=== PATIENT | female | born 1950 | race Caucasian/White ===

== ENCOUNTER 2021-05-23 11:20 | Outpatient (CLI) | payer MEDICARE, SELFPAY ==
--- NOTE | ~2021-05-23 | US_ITS ---
EXAMINATION: US venous doppler [facility] DATE: 05/23/2021 12:01 INDICATION: Left lower limb pain. Other specified soft tissue disorders. TECHNIQUE: Grayscale ultrasound images without and with compression and Doppler ultrasound images of the left lower extremity veins were obtained. COMPARISON: None. FINDINGS: The visualized portions of left common femoral vein, profunda (deep) femoral vein, femoral vein, popl iteal vein, peroneal veins, posterior tibial veins, and greater saphenous vein outflow are patent. Th ere is a large Mace's cyst of heterogeneous echogenicity measuring 5.1 x 5.1 x 2.5 cm. IMPRESSION: 1. No deep venous thrombosis. 2. Large Mace's cyst. Reviewed, dictated and finalized at location A.
== END 2021-05-23 11:21 | disposition home or self-care (01) ==
LOC: ANHIMG 11:30
PROVIDERS: PCP Family Medicine; Visit Provider Family Medicine
DX: M79.89 Other specified soft tissue disorders (principal); M71.22 Synovial cyst of popliteal space [Baker], left knee
CPT/HCPCS: 93971

== ENCOUNTER 2022-04-29 12:30 | Outpatient (CLI) | payer MEDICARE, SELFPAY ==
--- NOTE | 2022-04-29 | ECHO_ITS ---
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 Summary 1. Complete two-dimensional, color flow and Doppler transthoracic echocardiogram is performed. 2. Left ventricular chamber dimension is normal. 3. There is mildly increased left ventricular wall thickness. 4. Left ventricular septal wall motion is abnormal with septal motion related to bundle branch block. 5. Left ventricular systolic function is preserved, estimated at 50-55%. 6. The left ventricular diastolic function is grade I diastolic dysfunction. 7. E/e' 13 is mildly elevated. 8. Left atrial chamber dimension is mildly enlarged. 9. There is mild aortic valve sclerosis. 10. The mitral valve has mildly calcified leaflets. 11. No pulmonary hypertension, estimated pulmonary arterial systolic pressure is 28 mmHg. 12. There is trace pulmonic regurgitation. Left Ventricle Left ventricular systolic function is preserved, estimated at 50-55%. E/e' 13 is mildly elevated. Left ventricular chamber dimension is normal. There is mildly increased left ventricular wall thickness. Left ventricular septal wall motion is abnormal with septal motion related to bundle branch block. The left ventricular diastolic function is grade I diastolic dysfunction. Right Ventricle Right ventricular systolic function is normal based on normal TAPSE 1.7 cm. Right ventricular chamber dimension is not well visualized. Left Atria Left atrial chamber dimension is mildly enlarged. Right Atria Right atrial chamber dimension is normal. Aortic Valve The aortic valve is trileaflet. There is mild aortic valve sclerosis. There is no aortic valve stenosis. There is no aortic valve regurgitation. Pulmonic Valve There is trace pulmonic regurgitation. Mitral Valve The mitral valve has mildly calcified leaflets. There is no mitral valve stenosis. There is no mitral valve regurgitation. Tricuspid Valve There is no tricuspid valve regurgitation. No pulmonary hypertension, estimated pulmonary arterial systolic pressure is 28 mmHg. Pericardium/Pleural There is no pericardial effusion. Inferior Vena Cava Normal inferior vena cava with >50% collapse upon inspiration consistent with normal right atrial pressure, 5 mmHg. Aorta The aortic root size at the sinus of Valsalva is normal. Left Ventricular Outflow Tract Name Value Normal LVOT 2D LVOT Diameter 1.8 cm LVOT Doppler LVOT Peak Gradient 4 mmHg LVOT Mean Gradient 2 mmHg LVOT VTI
== END 2022-04-29 12:31 | disposition home or self-care (01) ==
LOC: ANHCARD 12:33
PROVIDERS: PCP Family Medicine; Visit Provider Internal Medicine Cardiovascular Disease
DX: I42.7 Cardiomyopathy due to drug and external agent (principal)
CPT/HCPCS: 93306

== ENCOUNTER 2024-11-09 12:29 | Emergency (ER) | payer MEDICARE, SELFPAY ==
--- NOTE | ~2024-11-09 | CT_ITS ---
EXAMINATION: CT hip RT wo con DATE: 11/09/2024 13:50 INDICATION: Right thigh pain/nerve pain. TECHNIQUE: High resolution computed tomography (CT) of the right hip was performed without intravenou s contrast. Additional sagittal and coronal reconstructions were performed. Automated exposure contro l and iterative reconstruction technique were employed. The dose-length product was 778.66 mGy-cm. COMPARISON: None FINDINGS: Bone alignment is normal. No fracture or suspected osteonecrosis. Moderate osteoarthritis at the righ t hip with subarticular cystlike changes suggesting high-grade chondral malacia at the anterior, post erior and posterior superior right acetabulum. No right hip joint effusion. There is fatty atrophy al tonia the right rectus femoris muscle belly suggesting sequela of prior trauma or denervation. Remainin g musculature of the sized right thigh and hemipelvis are normal. Bladder, visualized bowels and visu alized portion of the uterus are unremarkable. No pathologically enlarged right pelvic and inguinal l ymphadenopathy. No evident masses, abnormal fluid collections or other abnormal impinging lesions peter ng the course of the right lumbosacral plexus, sciatic nerve or femoral nerve. IMPRESSION: 1. Moderate right hip osteoarthritis. 2. Fatty atrophy along the right rectus femoris muscle belly which could be sequela of prior trauma o r chronic denervation change. Reviewed, dictated and finalized at location B. IMPRESSION: 1. Moderate right hip osteoarthritis. 2. Fatty atrophy along the right rectus femoris muscle belly which could be seq uela of prior trauma or chronic denervation change.
--- NOTE | ~2024-11-09 | US_ITS ---
RIGHT LOWER EXTREMITY VENOUS ULTRASOUND Ordering provider: Rich Majano MD History: . right thigh pain, fullness . Comparison: None. FINDINGS: --COMMON FEMORAL: Patent and free of thrombus. Normal compressibility, phasic flow and augmentation. --PROXIMAL SUPERFICIAL FEMORAL: Patent and free of thrombus. Normal compressibility, phasic flow and augmentation. --DISTAL SUPERFICIAL FEMORAL: Patent and free of thrombus. Normal compressibility, phasic flow and au gmentation. --POPLITEAL: Patent and free of thrombus. Normal compressibility, phasic flow and augmentation. --POSTERIOR TIBIAL: Patent and free of thrombus. Normal compressibility, phasic flow and augmentation . IMPRESSION: Negative right lower extremity venous US. No deep vein thrombosis. Reviewed, dictated and finalized at location A.
[2024-11-09 12:34] VITALS: BP 151/66; PULSE 89; RESP 18; TEMP 36.8; O2SAT 97
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
--- OUTSIDE RECORDS SUMMARY | 2024-11-09 14:23 | XMS_ITS | Clinical Summary ---
Author Organization [facility] Address [address] [place] [address] Care Team Providers Care Municipal Maintenance Worker Name Role Phone Arabella Yoo MD Primary Care Provider Allergies Active Allergy Reactions Criticality Noted Date Comments Hydrocodone Vomiting Low Oxycodone Medications levothyroxine (SYNTHROID, LEVOTHROID) 50 mcg tablet Take 1,000 tablets (50,000 mcg total) by mouth daily 8 Active cholecalciferol (VITAMIN D-3) 5,000 unit capsule Take 1 capsule (5,000 Units total) by mouth daily Active cyclobenzaprine (FLEXERIL) 10 mg tablet as needed. 8 Active vit C,I-Yn-uxfhd-iron tein-zeaxan 60 mg-13.5 mg- 15 mg-2 mg-6 mg capsule TAKE 1 CAPSULE DAILY. Active CALCIUM CITRATE ORAL 1,260 mg daily. Acti ve BIOTIN ORAL Take 1 capsule by mouth daily Active atorvastatin (LIPITOR) 10 mg tablet Take 1 tablet (10 mg total) by mouth daily 90 tablet 3 3 Active furosemide (LASIX) 20 mg tablet Take 1 tablet every Mondays, Wednesdays & Fridays 36 tablet 3 4 Active lisinopriL (PRINIVIL,ZESTR IL) 40 mg tablet Take 1 tablet (40 mg total) by mouth daily 90 tablet 3 5 Active metoprolol XL (TOPROL-XL) 50 mg extended release tablet Take 1.5 tablets (75 mg total) by mouth daily 135 tablet 3 5 Active Active Problems Problem Noted Date Diagnosed Date History of breast cancer 02/04/2019 Hypertension 04/29/2017 Left bundle branch block (LBBB) 09/15/2012 Cardiomyopathy 09/15/2012 Encounters Date Type Department Care Team Description 09/21/2024 2:30 PM DISPERSION MIXER Office Visit [facility] Card[facility] [address] [place] [address] iKng Hooks MD Left bundle branch block (LBBB) (Primary Dx) from Last 3 Months Surgical History Surgery Date Site/Laterality Comments MASTECTOMY Left FOOT SURGERY Medical History Medical History Date Comments Disorder of thyroid Thyroid dise ase Hx Other Medical Blood clots in leg; Comments: RAJNI 01/11/2014 - Hx Other Medical abnormal heartb eat; Comments: RAJNI 01/11/2014 - Hx Other Medical Mastectomy; Com ments: RAJNI 01/11/2014 - Hx Other Medical foot repair; Co mments: RAJNI 01/11/2014 - Cancer (HCC) Deep vein thrombosis (HCC) LBBB (left bundle branch block) Family History Medical History Relation Name Comments Heart attack Father Family history of myocardial infarction - (Added by TW Conv) Brain cancer Maternal Grandfather Family history of malignant neoplasm of brain - Relation: Grandfather (Added by TW Conv) Lung cancer Maternal Grandfather Family history of lung cancer - Relation: Grandfather (Added by TW Conv) Brain cancer Mother Family history of malignant neoplasm of brain - (Added by TW Conv) Heart attack Mother Family history of myocardial infarction - (Added by TW Conv) Lung cancer Mother Family history of lung cancer - (Added by TW Conv) Lymphoma Mother Family history of lymphoma - (Added by TW Conv) Cancer Other 1 Family history of Cancer; Heart disease Other 2 Family history of Heart problems; Arthritis Other 3 Family history of Arthritis; Diabetes Other 4 Family history of Diabetes; Other Other 5 Family history of Hepertension; Kidney disease Other 6 Family histor y of Kidney problems; Lung cancer Other 7 Family history of lung cancer - (Added by TW Conv) Lung cancer Other 8 Family history of lung cancer - Relation: Uncle (Added by TW Conv) Lymphoma Other 9 Family history of lymphoma - (Added by TW Conv) Brain cancer Other 10 Family history of malignant neoplasm of brain - (Added by TW Conv) Relation Name Status Comments Father Maternal Grandfather Mother Other 1 Other 2 Other 3 Other 4 Other 5 Other 6 Other 7 Other 8 Other 9 Other 10 Social History Tobacco Use Types Packs/Day Years Used Date Smoking Tobacco: Former Smokeless Tobacco: Never Tobacco Cessation:Counseling Given: Not Answered Comments Unknown Sex and Gender Information Value Date Recorded Sex Assigned at Not on file Legal Sex Female 3:17 AM DISPERSION MIXER Gender Identity Female 01/29/2021 9:23 AM CDT Sexual Orientation Straight 01/29/2021 9: 23 AM CDT Obstetrics History Last Filed Vital Signs Vital Sign Reading Time Taken Comments Blood Pressure 122/64 09/21/2024 2:33 PM DISPERSION MIXER Pulse 81 09/21/2024 2:33 PM DISPERSION MIXER Temperature 36.5 C (97.7 F) 10/28/2018 12:55 PM CDT Respiratory Rate 18 08/08/2018 3:45 PM DISPERSION MIXER Oxygen Saturation 98% 09/21/2024 2:33 PM DISPERSION MIXER Inhaled Oxygen Concentration - - Weight 105.1 kg (231 lb 9.6 oz) 09/21/2024 2:33 PM DISPERSION MIXER Height 165.1 cm (5' 5 ) 09/21/2024 2:33 PM DISPERSION MIXER Body Mass Index 38.54 09/21/2024 2:33 PM DISPERSION MIXER Plan of Treatment Health Maintenance Due Date Last Done Comments Depression Screening 1950 Fall Risk Assessment 1950 Hepatitis C Screening 1950 Hepatitis B Screening 1966 Zoster Vaccine (1 of 2) 1998 Well Visit 65+ 2013 Osteoporosis Screening-Bone Density Scan 11/04/2018 11/04/2016, 10/26/2014, 10/06/2012 DTaP/Tdap/Td Vaccine (2 - Td or Tdap) 08/18/2022 08/18/2012 Influenza Vaccine (#1) 2024 9, 05/30/2018, 06/02/2017, Additional history exists Pneumococcal vaccine 65+ Completed 019, 08/18/2017, 06/02/2017 Breast Cancer Screening-Mammogram Discontinued 06/28/2024, 06/23/2023, 06/12/2022, Additional history exists Procedures Procedure Name Priority Date/Time Associated Diagnosis Comments ECG 12-LEAD Routine 09/21/2024 12:15 PM DISPERSION MIXER Left bundle branch block (LBBB) SCREENING MAMMOGRAM RIGHT W RUBENS UNILATERAL ONLY Schedule Routine, Read Routine (OP Routine) 06/28/2024 9:54 AM DISPERSION MIXER Encounter for screening mammogram for malignant neoplasm of breast DEXA AXIAL SKELETON BONE DENSITY 1 OR MORE SITES Routine 11/04/2016 3:43 PM CDT from Last 3 Months or Most Recently Relevant to Health Maintenance Results * ECG 12 lead (09/21/2024 12:15 PM DISPERSION MIXER) us King Hooks MD ECG ORDERABLES Final Re sult * Screening Mammogram Right W Rubens Unilateral Only (06/28/2024 9:54 AM DISPERSION MIXER) Anatomical Region Laterality Modality Breast Right Mammography Narrative 06/29/2024 1:26 PM DISPERSION MIXER Mammogram Technique: Right Breast Digital Breast Tomosynthesis, Unilateral C-view 2D Screening mammogram. Views obtained: right craniocaudal and right mediolateral oblique. Computer Aided Detection was performed. Mammogram Findings: The present examination has been compared to prior imaging studies performed at [facility] on 06/08/2021, 06/12/2022 and 06/23/2023. The breast is heterogeneously dense, which may obscure small masses. There is no suspicious abnormality in the right breast. Patient status post contralateral mastectomy for personal history of breast cancer. Impression: There is no mammographic evidence of malignancy. As this patient is over 75 years of age, further mammographic screening can be obtained as clinically indicated. OVERALL FINAL ASSESSMENT: BI-RADS CATEGORY 1: Negative. Procedure Note Susi Daniel MD - 06/29/2024 Mammogram Technique: Right Breast Digital Breast Tomosynthesis, Unilateral C-view 2DScreening mammogram. Views obtained: right craniocaudal and right mediolateral oblique. Computer Aided Detection was performed. Mammogram Findings: The present examination has been compared to prior imaging studies performed at [facility] on 06/08/2021, 06/12/2022 and 06/23/2023. The breast is heterogeneously dense, which may obscure small masses. There is no suspicious abnormality in the right breast. Patient status post contralateral mastectomy for personal history ofbreast cancer. Impression: There is no mammographic evidence of malignancy. As this patient is over 75 years of age, further mammographic screeningcan be obtained as clinically indicated. OVERALL FINAL ASSESSMENT: BI-RADS CATEGORY 1: Negative. Beti Healy ANCILLARY SERVICES MANAGER IMG MAMMO PROCEDURES Fin al Result * Dexa Axial Skeleton Bone Density 1 or 2 Site (11/04/2016 3:43 PM CDT) Anatomical Region Laterality Modality Body N/A Radiographic Juani ging 11/04/2016 3:43 PM CDT Narrative 11/04/2016 3:43 PM CDT vm DEXA Bone Density Axial Acc#: [id number] DATE OF EXAM: Nov 04 2016 CLINICAL HISTORY: Estrogen receptor positive breast cancer. Menopause age 43. RESULT: DXA LEFT HIP RESULTS SUMMARY: BMD (g/cm'b2) T-score Z-score Neck 0.787 -0.6 1.1 Total 1.054 0.9 2.3 DXA L-SPINE RESULTS SUMMARY: BMD (g/cm'b2) T-score Z-score L1 0.919 -0.6 1.1 L2 1.025 0.0 1.9 L3 1.131 0.4 2.5 L4 1.035 -0.2 1.9 Total 1.028 -0.2 1.8 IMPRESSION: 1. LEFT HIP T-SCORE -0.6 NECK; +0.9 TOTAL; NORMAL. T-SCORE HAS INCREASED 0.2 SINCE LAST EXAM ON OCTOBER 30, BUT DECREASED 0.2 SINCE BASELINE ON SEPTEMBER 30. BONE MINERAL DENSITY HAS INCREASED 2.3% SINCE LAST EXAM, BUT DECREASED 1.5% SINCE BASELINE. 2. LUMBAR SPINE T-SCORE -0.2; NORMAL. T-SCORE HAS DECREASED 0.4 SINCE LAST EXAM AND HAS DECREASED 1.0 SINCE BASELINE. BONE MINERAL DENSITY HAS DECREASED 3.5% SINCE LAST EXAM AND HAS DECREASED 9.6% SINCE BASELINE. COMMENT: W.H.O. defines the T-score of between -1 and -2.5 as osteopenia, the level at which there may be an increased risk of developing osteoporosis and fractures in the future. Osteoporosis is defined as T-score lower than -2.5 (significantly increased risk of fracture due to osteoporosis). T-score is a comparison to peak bone mineral density of young adult reference population. Z-score is a comparison to bone mineral density of sex and age group population. Interpreting Physician: DR IMELDA FISHER M.D. Read on: Nov 04 2016 12:00P Transcribed by: bowen On: Nov 04 2016 5:36P Approved Electronically by: PHILLIP Freeman, DR SEGURA on: Nov 05 2016 12:46P Attending: RACHAEL WHELAN Requesting: RACHAEL WHELAN Requesting Fax: -- Attending Fax: -- Attending ID: [id number] Requesting ID: [id number] Report To 1 ID: [id number] Report To 1 Name: RACHAEL WHELAN Report To 1 FAX: -- NextGen Order #: Procedure Note Miscellaneous, Notinfile / Provider, MD Britni - 01/08/2017 DEXA Bone Density Axial Acc#: [id number] DATE OF EXAM: Nov 04 2016 CLINICAL HISTORY: Estrogen receptor positive breast cancer. Menopause age 43. RESULT: DXA LEFT HIP RESULTS SUMMARY: BMD (g/cm'b2) T-score Z-score Neck 0.787 -0.6 1.1 Total 1.054 0.92.3 DXA L-SPINE RESULTS SUMMARY: BMD (g/cm'b2) T-score Z-score L1 0.919 -0.6 1.1 L2 1.025 0.0 1.9 L31.131 0.4 2.5 L4 1.035 -0.2 1.9 Total 1.028 -0.2 1.8 IMPRESSION: 1. LEFT HIP T-SCORE -0.6 NECK; +0.9 TOTAL; NORMAL. T-SCORE HASINCREASED 0.2 SINCE LAST EXAM ON OCTOBER 30, BUT DECREASED 0.2 SINCE BASELINE ON 19FEBRUARY 13. BONE MINERAL DENSITY HAS INCREASED 2.3% SINCE LAST EXAM, BUTDECREASED 1.5% SINCE BASELINE. 2. LUMBAR SPINE T-SCORE -0.2; NORMAL. T-SCORE HAS DECREASED 0.4 SINCELAST EXAM AND HAS DECREASED 1.0 SINCE BASELINE. BONE MINERAL DENSITY HASDECREASED 3.5% SINCE LAST EXAM AND HAS DECREASED 9.6% SINCE BASELINE. COMMENT: W.H.O. defines the T-score of between -1 and -2.5 as osteopenia, thelevel at which there may be an increased risk of developing osteoporosisand fractures in the future. Osteoporosis is defined as T-score lowerthan -2.5 (significantly increased risk of fracture due to osteoporosis).T-score is a comparison to peak bone mineral density of young adultreference population. Z-score is a comparison to bone mineral density ofsex and age group population. Interpreting Physician: DR IMELDA FISHER M.D. Read on: Nov 04 201612:00P Transcribed by: bowen On: Nov 04 2016 5:36P Approved Electronically by: PHILLIP Freeman, DR SEGURA on: Nov 05 201612:46P Attending: RACHAEL WHELAN Requesting: RACHAEL WHELAN Requesting Fax: -- Attending Fax: -- Attending ID: [id number] Requesting ID: [id number] Report To 1 ID: [id number] Report To 1 Name: RACHAEL WHELAN Report To 1 FAX: -- NextGen Order #: us Not In File Miscellaneous IMG DXA PROCEDURES Fin al Result from Last 3 Months or Most Recently Relevant to Health Maintenance Insurance MEDICARE COMMERCIAL GENERIC [place] [phone] [facility] Care Teams Municipal Maintenance Worker Relationship Specialty Start Date End Date Arabella Yoo MD PCP - General Family Practice 01/31/21
--- OUTSIDE RECORDS SUMMARY | 2024-11-09 14:23 | XMS_ITS | Encounter Summary ---
Author Organization [facility] Address [address] [place] [address] Phone Care Team Providers Care Bridge Builder Name Role Phone Arabella Yoo MD Primary Care Provider Encounter Details Date Type Department Care Team (Latest Contact Info) Description 07/10/2021 Orders Only [facility] Scanning, Provider Social History Tobacco Use Types Packs/Day Years Used Date Smoking Tobacco: Former Smokeless Tobacco: Never Comments Unknown Sex and Gender Information Value Date Recorded Sex Assigned at Not on file Legal Sex Female 3:17 AM LPN INSTRUCTOR Gender Identity Female 01/29/2021 9:23 AM CDT Sexual Orientation Straight 01/29/2021 9: 23 AM CDT documented as of this encounter Progress Notes * Donna Coley RN - 07/10/2021 11:59 PM CST Last lipids per PCP from January,. I lmor for pt that needs to have lipids done. * Denis Bejarano MD - 07/10/2021 11:59 PM CST Lipids fine. * Donna Coley RN - 07/10/2021 11:59 PM CST See related task. Pt to have FLP as that she has not had this done since 01/2021. documented in this encounter Plan of Treatment Not on file documented as of this encounter Procedures Procedure Name Priority Date/Time Associated Diagnosis Comments SCAN - LABS 07/10/2021 documented in this encounter Results * SCAN - LABS (07/10/2021) us Provider Scanning Final Result documented in this encounter Visit Diagnoses Not on filedocumented in this encounter Care Teams Bridge Builder Relationship Specialty Start Date End Date Arabella Yoo MD PCP - General Family Practice 01/31/21 documented as of this encounter
--- OUTSIDE RECORDS SUMMARY | 2024-11-09 14:23 | XMS_ITS | Encounter Summary ---
Author Organization [facility] of [facility] Address [address] [place] [address] Phone Care Team Providers Care Skin Care Therapist Name Role Phone Ronnie Spencer MD Primary Care Provider [phone]- [phone] Unknown, Notinfile Primary Care Provider Unavail Arabella Valdez MD Primary Care Provider Encounter Details Date Type Department Care Team (Latest Contact Info) Description 04/03/2020 Orders Only [facility] Scanning, Provider Social History Tobacco Use Types Packs/Day Years Used Date Smoking Tobacco: Former Smokeless Tobacco: Never Comments Unknown Sex and Gender Information Value Date Recorded Sex Assigned at Not on file Legal Sex Female 3:17 AM CERTIFIED PHARMACY TECHNICIAN Gender Identity Female 01/29/2021 9:23 AM CDT Sexual Orientation Straight 01/29/2021 9: 23 AM CDT documented as of this encounter Progress Notes * Donna Coley RN - 04/03/2020 11:59 PM CDT Labs from provider * Denis Bejarano MD - 04/03/2020 11:59 PM CDT Noted documented in this encounter Plan of Treatment Not on file documented as of this encounter Procedures Procedure Name Priority Date/Time Associated Diagnosis Comments SCAN - LABS 04/03/2020 documented in this encounter Results * SCAN - LABS (04/03/2020) us Provider Scanning Final Result documented in this encounter Visit Diagnoses Not on filedocumented in this encounter Care Teams Skin Care Therapist Relationship Specialty Start Date End Date Ronnie Spencer MD [address] [place] [address] PCP - General 01/16/18 04/16/20 Unknown, Notinfile PCP - General 04/17/20 01/30/21 Arabella Yoo MD PCP - General Family Practice 01/31/21 documented as of this encounter
--- OUTSIDE RECORDS SUMMARY | 2024-11-09 14:23 | XMS_ITS | Encounter Summary ---
Author Organization [facility] Address [address] [place] [address] Phone Care Team Providers Care Technical Operator Name Role Phone Unknown, Noticollin Primary Care Provider Unavail able Arabella Yoo MD Primary Care Provider Encounter Details Date Type Department Care Team (Late st Contact Info) Description 08/16/2020 Telephone [facility] Surgery [address] [place] [address] [place] [address] Cleopatra Stapleton Social History Tobacco Use Types Packs/Day Years Used Date Smoking Tobacco: Former Smokeless Tobacco: Never Comments Unknown Sex and Gender Information Value Date Recorded Sex Assigned at Not on file Legal Sex Female 3:17 AM TEAM LEADER Gender Identity Female 01/29/2021 9:23 AM CDT Sexual Orientation Straight 01/29/2021 9: 23 AM CDT documented as of this encounter Plan of Treatment Not on file documented as of this encounter Visit Diagnoses Not on filedocumented in this encounter Care Teams Technical Operator Relationship Specialty Start Date End Date Unknown, Brynn PCP - General 04/17/20 01/30/21 Arabella Yoo MD PCP - General Family Practice 01/31/21 documented as of this encounter
--- OUTSIDE RECORDS SUMMARY | 2024-11-09 14:23 | XMS_ITS | Referral Summary ---
Author Organization [facility] Address [address] [place] [address] Care Team Providers Care Security And Compliance Analyst Name Role Phone Arabella Yoo MD Primary Care Provider Encounters Date Type Department Care Team Description 09/21/2024 2:30 PM PATTERN CUTTER Office Visit [facility] Cardiology [address] [place] [address] King Hooks MD Left bundle branch block (LBBB) (Primary Dx) from Last 3 Months Allergies Active Allergy Reactions Criticality Noted Date Comments Hydrocodone Vomiting Low Oxycodone Medications levothyroxine (SYNTHROID, LEVOTHROID) 50 mcg tablet Take 1,000 tablets (50,000 mcg total) by mouth daily 8 Active cholecalciferol (VITAMIN D-3) 5,000 unit capsule Take 1 capsule (5,000 Units total) by mouth daily Active cyclobenzaprine (FLEXERIL) 10 mg tablet as needed. 8 Active vit C,F-Ws-blkvp-iron tein-zeaxan 60 mg-13.5 mg- 15 mg-2 mg-6 [...] bundle branch block (LBBB) 09/15/2012 Cardiomyopathy 09/15/2012 Social History Tobacco Use Types Packs/Day Years Used Date Smoking Tobacco: Former Smokeless Tobacco: Never Tobacco Cessation:Counseling Given: Not Answered Comments Unknown Sex and Gender Information Value Date Recorded Sex Assigned at Not on file Legal Sex Female 3:17 AM PATTERN CUTTER Gender Identity Female 01/29/2021 9:23 AM CDT Sexual Orientation Straight 01/29/2021 9: 23 AM CDT Last Filed Vital Signs Vital Sign Reading Time Taken Comments Blood Pressure 122/64 09/21/2024 2:33 PM PATTERN CUTTER Pulse 81 09/21/2024 2:33 PM PATTERN CUTTER Temperature 36.5 C (97.7 F) 10/28/2018 12:55 PM CDT Respiratory Rate 18 08/08/2018 3:45 PM PATTERN CUTTER Oxygen Saturation 98% 09/21/2024 2:33 PM PATTERN CUTTER Inhaled Oxygen Concentration - - Weight 105.1 kg (231 lb 9.6 oz) 09/21/2024 2:33 PM PATTERN CUTTER Height 165.1 cm (5' 5 ) 09/21/2024 2:33 PM PATTERN CUTTER Body Mass Index 38.54 09/21/2024 2:33 PM PATTERN CUTTER Plan of Treatment Not on file Procedures Procedure Name Priority Date/Time Associated Diagnosis Comments ECG 12-LEAD Routine 09/21/2024 12:15 PM PATTERN CUTTER Left bundle branch block (LBBB) SCREENING MAMMOGRAM RIGHT W RUBENS UNILATERAL ONLY Schedule Routine, Read Routine (OP Routine) 06/28/2024 9:54 AM PATTERN CUTTER Encounter for screening mammogram for malignant neoplasm of breast DEXA AXIAL SKELETON BONE DENSITY 1 OR MORE SITES Routine 11/04/2016 3:43 PM CDT from Last 3 Months or Most Recently Relevant to Health Maintenance Results * ECG 12 lead (09/21/2024 12:15 PM PATTERN CUTTER) us King Hooks MD ECG ORDERABLES Final Re sult * Screening Mammogram Right W Rubens Unilateral Only (06/28/2024 9:54 AM PATTERN CUTTER) Anatomical Region Laterality Modality Breast Right Mammography Narrative 06/29/2024 1:26 PM PATTERN CUTTER Mammogram Technique: Right Breast Digital Breast Tomosynthesis, Unilateral C-view 2D Screening mammogram. Views obtained: right craniocaudal and right mediolateral oblique. Computer Aided Detection was performed. Mammogram Findings: The present examination has been compared to prior imaging studies performed at [facility] on 06/08/2021, 06/12/2022 and 06/23/2023. The breast [...] compared to prior imaging studies performed at [facility] on 06/08/2021, 06/12/2022 and 06/23/2023. The breast [...] OVERALL FINAL ASSESSMENT: BI-RADS CATEGORY 1: Negative. us Beti Healy NP IMG MAMMO PROCEDURES Fin al Result * Dexa Axial Skeleton Bone Density 1 or 2 Site (11/04/2016 3:43 PM CDT) Anatomical Region Laterality Modality Body N/A Radiographic Juani ging 11/04/2016 3:43 PM CDT Narrative 11/04/2016 3:43 PM CDT DEXA Bone Density Axial Acc#: [id number] DATE OF EXAM: Nov 04 2016 CLINICAL [...] Fax: -- Attending Fax: -- Attending ID: [id number] Requesting ID: [id number] Report To 1 ID: [id number] Report To 1 Name: RACHAEL WHELAN Report To 1 FAX: -- NextGen Order #: Procedure Note Miscellaneous, Notinfile / Provider, MD Britni - 01/08/2017 DEXA Bone Density Axial Acc#: [id number] DATE OF EXAM: Nov 04 2016 CLINICAL [...] 30, BUT DECREASED 0.2 SINCE BASELINE ON 13. BONE MINERAL DENSITY HAS INCREASED 2.3% [...] Fax: -- Attending Fax: -- Attending ID: [id number] Requesting ID: [id number] Report To 1 ID: [id number] Report To 1 Name: RACHAEL WHELAN Report To 1 FAX: -- NextGen Order #: us Not In File Miscellaneous IMG DXA PROCEDURES Fin al Result from Last 3 Months or Most Recently Relevant to Health Maintenance Insurance MEDICARE COMMERCIAL GENERIC MEDICARE [employer] [facility] MEDICARE [facility] Care Teams Security And Compliance Analyst Relationship Specialty Start Date End Date Arabella Yoo MD PCP - General Family Practice 01/31/21
--- OUTSIDE RECORDS SUMMARY | 2024-11-09 15:19 | XMS_ITS | Encounter Summary ---
Author Organization [facility] Address [address] [place] [address] Phone Care Team Providers Care Curtain Stitcher Name Role Phone Unknown, Noticollin Primary Care Provider Unavail able Arabella Yoo MD Primary Care Provider Encounter Details Date Type Department Care Team (Late st Contact Info) Description 08/16/2020 Telephone [facility] Surgery [address] [place] [address] [place] [address] Cleopatra Stapleton Social History Tobacco Use Types Packs/Day Years Used Date Smoking Tobacco: Former Smokeless Tobacco: Never Comments Unknown Sex and Gender Information Value Date Recorded Sex Assigned at Not on file Legal Sex Female 3: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
--- OUTSIDE RECORDS SUMMARY | 2024-11-09 15:19 | XMS_ITS | Encounter Summary ---
Author Organization [facility] Address [address] [place] [address] Phone Care Team Providers Care Police Captain Precinct Name Role Phone Ronnie Spencer MD Primary Care Provider [phone]- [phone] Unknown, Notinfile Primary Care Provider Unavail Arabella [...] on file Legal Sex Female 3:17 AM CREDIT CONTROL ASSISTANT Gender Identity Female 01/29/2021 9:23 AM CDT [...] on filedocumented in this encounter Care Teams Police Captain Precinct Relationship Specialty Start Date End Date Ronnie Spencer MD [address] [place] [address] PCP - General 01/16/18 04/16/20 Unknown, Notinfile PCP - General 04/17/20 01/30/21 Arabella Yoo MD PCP - General Family Practice 01/31/21 documented as of this encounter
--- OUTSIDE RECORDS SUMMARY | 2024-11-09 15:19 | XMS_ITS | Encounter Summary ---
Author Organization [facility] Address [address] [place] [address] Phone Care Team Providers Care Manager Cardiology Name Role Phone Arabella Yoo MD Primary Care Provider Encounter Details Date Type Department Care Team (Latest Contact Info) Description 07/10/2021 Orders Only [facility] Scanning, Provider Social History Tobacco Use Types Packs/Day Years Used Date Smoking Tobacco: Former Smokeless Tobacco: Never Comments Unknown Sex and Gender Information Value Date Recorded Sex Assigned at Not on file Legal Sex Female 3:17 AM TACKER OFF Gender Identity Female 01/29/2021 9:23 AM CDT [...] on filedocumented in this encounter Care Teams Manager Cardiology Relationship Specialty Start Date End Date Arabella Yoo MD PCP - General Family Practice 01/31/21 documented as of this encounter
--- OUTSIDE RECORDS SUMMARY | 2024-11-09 15:19 | XMS_ITS | Clinical Summary ---
Author Organization [facility] Address [address] [place] [address] Care Team Providers Care Licensed Guide Name Role Phone Arabella Yoo MD Primary [...] mg tablet as needed. 8 Active vit C,S-Gs-qczhx-iron tein-zeaxan 60 mg-13.5 mg- 15 mg-2 mg-6 [...] Department Care Team Description 09/21/2024 2:30 PM LABORER DEMOLITION Office Visit [facility] Medical [facility] Cardiology [address] [place] [address] King Hooks MD Left bundle [...] on file Legal Sex Female 3:17 AM LABORER DEMOLITION Gender Identity Female 01/29/2021 9:23 AM CDT Sexual Orientation Straight 01/29/2021 9: 23 AM CDT Obstetrics History Last Filed Vital Signs Vital Sign Reading Time Taken Comments Blood Pressure 122/64 09/21/2024 2:33 PM LABORER DEMOLITION Pulse 81 09/21/2024 2:33 PM LABORER DEMOLITION Temperature 36.5 C (97.7 F) 10/28/2018 12:55 PM CDT Respiratory Rate 18 08/08/2018 3:45 PM LABORER DEMOLITION Oxygen Saturation 98% 09/21/2024 2:33 PM LABORER DEMOLITION Inhaled Oxygen Concentration - - Weight 105.1 kg (231 lb 9.6 oz) 09/21/2024 2:33 PM LABORER DEMOLITION Height 165.1 cm (5' 5 ) 09/21/2024 2:33 PM LABORER DEMOLITION Body Mass Index 38.54 09/21/2024 2:33 PM LABORER DEMOLITION Plan of Treatment Health Maintenance Due Date [...] Comments ECG 12-LEAD Routine 09/21/2024 12:15 PM LABORER DEMOLITION Left bundle branch block (LBBB) SCREENING MAMMOGRAM RIGHT W RUBENS UNILATERAL ONLY Schedule Routine, Read Routine (OP Routine) 06/28/2024 9:54 AM LABORER DEMOLITION Encounter for screening mammogram for malignant neoplasm of breast DEXA AXIAL SKELETON BONE DENSITY 1 OR MORE SITES Routine 11/04/2016 3:43 PM CDT from Last 3 Months or Most Recently Relevant to Health Maintenance Results * ECG 12 lead (09/21/2024 12:15 PM LABORER DEMOLITION) us King Hooks MD ECG ORDERABLES Final Re sult * Screening Mammogram Right W Rubens Unilateral Only (06/28/2024 9:54 AM LABORER DEMOLITION) Anatomical Region Laterality Modality Breast Right Mammography Narrative 06/29/2024 1:26 PM LABORER DEMOLITION Mammogram Technique: Right Breast Digital Breast Tomosynthesis, Unilateral C-view 2D Screening mammogram. Views obtained: right craniocaudal and right mediolateral oblique. Computer Aided Detection was performed. Mammogram Findings: The present examination has been compared to prior imaging studies performed at [facility] on 06/08/2021, 06/12/2022 and 06/23/2023. The breast [...] compared to prior imaging studies performed at [facility] on 06/08/2021, 06/12/2022 and 06/23/2023. The breast [...] ASSESSMENT: BI-RADS CATEGORY 1: Negative. Beti Healy COOLING MACHINE OPERATOR IMG MAMMO PROCEDURES Fin al Result * Dexa Axial Skeleton Bone Density 1 or 2 Site (11/04/2016 3:43 PM CDT) Anatomical Region Laterality Modality Body N/A Radiographic Juani ging 11/04/2016 3:43 PM CDT Narrative 11/04/2016 3:43 PM CDT vm DEXA Bone Density Axial Acc#: [id number] DATE OF EXAM: Nov 04 2016 CLINICAL [...] Fax: -- Attending Fax: -- Attending ID: [id number] Requesting ID: [id number] Report To 1 ID: [id number] Report To 1 Name: RACHAEL WHELAN Report To 1 FAX: -- NextGen Order #: Procedure Note Miscellaneous, Notinfile / Provider, MD Britni - 01/08/2017 DEXA Bone Density Axial Acc#: [id number] DATE OF EXAM: Nov 04 2016 CLINICAL [...] Fax: -- Attending Fax: -- Attending ID: [id number] Requesting ID: [id number] Report To 1 ID: [id number] Report To 1 Name: RACHAEL WHELAN Report To 1 FAX: -- NextGen Order #: us Not In File Miscellaneous IMG DXA PROCEDURES Fin al Result from Last 3 Months or Most Recently Relevant to Health Maintenance Insurance MEDICARE [facility] Address: [facility] [address] [place] [address] COMMERCIAL GENERIC MEDICARE [place] [address] [facility] Care Teams Licensed Guide Relationship Specialty Start Date End Date Arabella Yoo MD PCP - General Family Practice 01/31/21
--- OUTSIDE RECORDS SUMMARY | 2024-11-09 15:19 | XMS_ITS | Referral Summary ---
Author Organization [facility] Address [address] [place] [address] Care Team Providers Care Shuttle Preparation Supervisor Name Role Phone Arabella Yoo MD Primary Care Provider Encounters Date Type Department Care Team Description 09/21/2024 2:30 PM MANAGER FLOOR Office Visit [facility] Medical Group Cardiology [address] [place] [address] King Hooks MD Left bundle [...] mg tablet as needed. 8 Active vit C,Y-Bz-hauph-iron tein-zeaxan 60 mg-13.5 mg- 15 mg-2 mg-6 [...] on file Legal Sex Female 3:17 AM MANAGER FLOOR Gender Identity Female 01/29/2021 9:23 AM CDT Sexual Orientation Straight 01/29/2021 9: 23 AM CDT Last Filed Vital Signs Vital Sign Reading Time Taken Comments Blood Pressure 122/64 09/21/2024 2:33 PM MANAGER FLOOR Pulse 81 09/21/2024 2:33 PM MANAGER FLOOR Temperature 36.5 C (97.7 F) 10/28/2018 12:55 PM CDT Respiratory Rate 18 08/08/2018 3:45 PM MANAGER FLOOR Oxygen Saturation 98% 09/21/2024 2:33 PM MANAGER FLOOR Inhaled Oxygen Concentration - - Weight 105.1 kg (231 lb 9.6 oz) 09/21/2024 2:33 PM MANAGER FLOOR Height 165.1 cm (5' 5 ) 09/21/2024 2:33 PM MANAGER FLOOR Body Mass Index 38.54 09/21/2024 2:33 PM MANAGER FLOOR Plan of Treatment Not on file Procedures Procedure Name Priority Date/Time Associated Diagnosis Comments ECG 12-LEAD Routine 09/21/2024 12:15 PM MANAGER FLOOR Left bundle branch block (LBBB) SCREENING MAMMOGRAM RIGHT W RUBENS UNILATERAL ONLY Schedule Routine, Read Routine (OP Routine) 06/28/2024 9:54 AM MANAGER FLOOR Encounter for screening mammogram for malignant neoplasm of breast DEXA AXIAL SKELETON BONE DENSITY 1 OR MORE SITES Routine 11/04/2016 3:43 PM CDT from Last 3 Months or Most Recently Relevant to Health Maintenance Results * ECG 12 lead (09/21/2024 12:15 PM MANAGER FLOOR) us King Hooks MD ECG ORDERABLES Final Re sult * Screening Mammogram Right W Rubens Unilateral Only (06/28/2024 9:54 AM MANAGER FLOOR) Anatomical Region Laterality Modality Breast Right Mammography Narrative 06/29/2024 1:26 PM MANAGER FLOOR Mammogram Technique: Right Breast Digital Breast Tomosynthesis, Unilateral C-view 2D Screening mammogram. Views obtained: right craniocaudal and right mediolateral oblique. Computer Aided Detection was performed. Mammogram Findings: The present examination has been compared to prior imaging studies performed at [facility] on 06/08/2021, 06/12/2022 and 06/23/2023. The [...] compared to prior imaging studies performed at [facility] on 06/08/2021, 06/12/2022 and 06/23/2023. The [...] PM CDT DEXA Bone Density Axial Acc#: [id number] DATE OF EXAM: Nov 04 2016 CLINICAL [...] Fax: -- Attending Fax: -- Attending ID: [id number] Requesting ID: [id number] Report To 1 ID: [id number] Report To 1 Name: RACHAEL WHELAN Report To 1 FAX: -- NextGen Order #: Procedure Note Miscellaneous, Notinfile / Provider, MD Britni - 01/08/2017 DEXA Bone Density Axial Acc#: [id number] DATE OF EXAM: Nov 04 2016 CLINICAL [...] Fax: -- Attending Fax: -- Attending ID: [id number] Requesting ID: [id number] Report To 1 ID: [id number] Report To 1 Name: RACHAEL WHELAN Report To 1 FAX: -- NextGen Order #: us Not In File Miscellaneous IMG DXA PROCEDURES Fin al Result from Last 3 Months or Most Recently Relevant to Health Maintenance Insurance MEDICARE COMMERCIAL GENERIC MEDICARE [employer] [facility] MEDICARE [facility] Care Teams Shuttle Preparation Supervisor Relationship Specialty Start Date End Date Arabella Yoo MD PCP - General Family Practice 01/31/21
== END 2024-11-09 16:22 | disposition home or self-care (01) ==
PROVIDERS: Emergency Provider Student in an Organized Health Care Education/Training Program; PCP Family Medicine
DX: M79.651 Pain in right thigh (principal); I12.9 Hypertensive chronic kidney disease with stage 1 through stage 4 chronic kidney disease, or unspecified chronic kidney disease; N18.30 Chronic kidney disease, stage 3 unspecified; I44.7 Left bundle-branch block, unspecified; J45.909 Unspecified asthma, uncomplicated; E03.9 Hypothyroidism, unspecified; Z85.3 Personal history of malignant neoplasm of breast
CPT/HCPCS: 73700; 93971; 99284